=== PATIENT | female | born 1990 | race Caucasian/White ===

== ENCOUNTER 2017-03-04 11:47 | Emergency (ER) | payer MEDICAID, OTHER ==
[2017-03-04 15:33] LABS: ADD MAN DIFF? NO
[2017-03-04 15:36] LABS: WHITE BLOOD COUNT 10.1 10^3/ul (4.8-10.8)
[2017-03-04 15:36] LABS: BASOPHILS % 0.4 % (0.0-2.0); EOSINOPHILS # 0.1 10^3/ul (0.0-0.5); EOSINOPHILS % 0.6 % (0.0-7.0); HEMOGLOBIN 13.2 g/dl (12.0-16.0); LYMPHOCYTES # 2.2 10^3/ul (0.8-2.9); LYMPHOCYTES % 21.4 % (15.0-51.0); MEAN CORPUSCULAR HEMOGLOBIN 28.3 pg (29.0-33.0); MEAN CORPUSCULAR HGB CONC 33.8 g/dl (32.0-37.0); MEAN CORPUSCULAR VOLUME 83.7 fl (82.0-101.0); MEAN PLATELET VOLUME 10.9 fl (7.4-10.4); MONOCYTE # 0.8 10^3/ul (0.3-0.9); MONOCYTES % 7.5 % (0.0-11.0); NEUTROPHIL # 7.1 10^3/ul (1.6-7.5); NEUTROPHILS % 69.8 % (39.0-77.0); PLATELET COUNT 241 10^3/UL (140-415); RED BLOOD COUNT 4.66 10^6/ul (4.20-5.40); RED CELL DISTRIBUTION WIDTH 12.8 % (11.5-14.5)
[2017-03-04 15:47] LABS: ADD UMIC YES; UR ASCORBIC ACID 40 mg/dL (NEGATIVE); UR BACTERIA FEW /HPF (NONE SEEN); UR BILIRUBIN (Dip) NEGATIVE (NEGATIVE); UR BLOOD (Dip) NEGATIVE (NEGATIVE); UR CLARITY SLIGHTLY CLOUDY (CLEAR); UR COLOR YELLOW (YELLOW); UR GLUCOSE (Dip) NEGATIVE (NEGATIVE); UR KETONES (Dip) NEGATIVE (NEGATIVE); UR LEUKOCYTE ESTERASE (Dip) 3+ Leu/ul (NEGATIVE); UR MUCUS FEW /HPF (NONE SEEN); UR NITRITE (Dip) NEGATIVE (NEGATIVE); UR RBC 8 /HPF (0-5); UR SPECIFIC GRAVITY (Dip) 1.011 (1.003-1.030); UR SQUAMOUS EPITHELIAL CELL FEW /HPF (FEW); UR TOTAL PROTEIN (Dip) NEGATIVE (NEGATIVE); UR UROBILINOGEN (Dip) NEGATIVE (NEGATIVE); UR WBC 3 /HPF (0-5)
== END 2017-03-04 18:02 | disposition home or self-care (01) ==
LOC: FTE 11:47
DX: O20.9 Hemorrhage in early pregnancy, unspecified (principal); Z3A.14 14 weeks gestation of pregnancy
CPT/HCPCS: 36415; 76801; 81001; 84702; 85025; 86900; 86901; 99284-25

== ENCOUNTER 2017-07-21 13:15 | Outpatient (CLI) | payer MEDICAID | END 2017-07-21 17:40 | disposition home or self-care (01) | LOC: OBT 13:15 → L-D 13:15 → OBT 17:40 | DX: O62.9 Abnormality of forces of labor, unspecified (principal); Z3A.33 33 weeks gestation of pregnancy | CPT/HCPCS: 76817; 76818 ==

== ENCOUNTER 2017-07-21 17:57 | Emergency (ER) | payer MEDICAID | END 2017-07-21 18:52 | disposition home or self-care (01) | LOC: FTE 17:57 | DX: O99.89 Other specified diseases and conditions complicating pregnancy, childbirth and the puerperium (principal); R05 Cough; Z3A.33 33 weeks gestation of pregnancy | CPT/HCPCS: 99283; Z7502 ==

== ENCOUNTER 2017-09-06 20:05 | Inpatient (IN) | payer MEDICAID ==
[2017-09-06] MEDS ORDERED: METHYLERGONOVINE 0.2 MG INJ IM (23:00)
[2017-09-06] MEDS ORDERED: IBUPROFEN 600 MG TAB PO (23:00)
[2017-09-06] MEDS ORDERED: MISOPROSTOL 200 MCG TAB PR (23:00)
[2017-09-06] MEDS ORDERED: BUTORPHANOL 1 MG INJ IV (23:00)
[2017-09-06] MEDS ORDERED: BUTORPHANOL 2 MG INJ IV (23:00)
[2017-09-06] MEDS ORDERED: CARBOPROST 250 MCG INJ IM (23:00)
[2017-09-06] MEDS ORDERED: LIDOCAINE 1% (MPF) 30 ML INJ INJ (23:00)
[2017-09-06] MEDS ORDERED: OXYTOCIN 30 UNITS/LR 500 ML IV ×2 (23:00)
[2017-09-06] MEDS ORDERED: ACETAMINOPHEN/CODEINE #3 TAB PO (23:00)
[2017-09-07] MEDS: LACTATED RINGER'S 1,000 ML IV* ×5 (00:20→17:00)
[2017-09-07 01:15] LABS: ADD MAN DIFF? NO
[2017-09-07 01:18] LABS: BASOPHILS % 0.3 % (0.0-2.0); EOSINOPHILS # 0.1 10^3/ul (0.0-0.5); EOSINOPHILS % 0.7 % (0.0-7.0); HEMATOCRIT 41.5 % (37.0-47.0); HEMOGLOBIN 13.6 g/dl (12.0-16.0); LYMPHOCYTES # 2.1 10^3/ul (0.8-2.9); LYMPHOCYTES % 23.2 % (15.0-51.0); MEAN CORPUSCULAR HEMOGLOBIN 28.3 pg (29.0-33.0); MEAN CORPUSCULAR HGB CONC 32.8 g/dl (32.0-37.0); MEAN CORPUSCULAR VOLUME 86.5 fl (82.0-101.0); MONOCYTE # 0.9 10^3/ul (0.3-0.9); MONOCYTES % 9.5 % (0.0-11.0); NEUTROPHIL # 5.9 10^3/ul (1.6-7.5); NEUTROPHILS % 65.9 % (39.0-77.0); PLATELET COUNT 204 10^3/UL (140-415); RED CELL DISTRIBUTION WIDTH 14.3 % (11.5-14.5)
[2017-09-07] MEDS: MISOPROSTOL 25 MCG CAPSULE PO ×5 (01:28→19:25)
[2017-09-07 01:37] LABS: INR 0.84; PARTIAL THROMBOPLASTIN TIME 24.4 Sec (25.0-35.0); PROTIME 11.6 Sec (11.9-14.9); PT RATIO 0.9
[2017-09-07] MEDS ORDERED: OXYTOCIN 30 UNITS/LR 500 ML BAG IV (07:00)
[2017-09-07] MEDS: DINOPROSTONE 10 MG VAG SUPP VAG (09:08)
[2017-09-07 15:12] LABS: RAPID PLASMA REAGIN NONREACTIVE (NR)
[2017-09-07] MEDS ORDERED: FENTAnyl 2MCG/ML-ROPIV 0.2% 100 ML (18:04)
[2017-09-07] MEDS ORDERED: NALOXONE (0.4 MG/ML) INJ IV ×2 (18:30→19:30)
[2017-09-07] MEDS ORDERED: FENTAnyl 2MCG/ML-ROPIV 0.2% 100 ML BAG EPI (18:30)
[2017-09-07] MEDS ORDERED: CEFAZOLIN 1 GM INJ (18:59)
[2017-09-07] MEDS ORDERED: OXYTOCIN 10 UNIT INJ (18:59)
[2017-09-07] MEDS ORDERED: LIDOCAINE 2% (SDV) 5 ML INJ (18:59)
[2017-09-07] MEDS ORDERED: ONDANSETRON 4 MG INJ (19:00)
[2017-09-07] MEDS ORDERED: KETOROLAC 30 MG INJ (19:00)
[2017-09-07] MEDS ORDERED: METOCLOPRAMIDE 10 MG INJ (19:00)
[2017-09-07] MEDS ORDERED: morphine SULFATE/PF (10 MG/10 ML) INJ (19:00)
[2017-09-07] MEDS ORDERED: DEXAMETHASONE 4 MG/ML 1 ML INJ (19:01)
[2017-09-07 19:24] LABS: CBV COHb 0.9 %; CBV Oxygen Sat 53.9 mmHG; CBV Total Hemglobin 14.9 g/dl; Cord Blood Venous pO2 23.3 mmHG (15.0-45.0); Fraction OxyHgb Cord Venous 52.8 %; MODE ROOM AIR; MetHgb Cord Venous 1.2 %; Sample Type Blood venous; Site CORD
[2017-09-07] MEDS ORDERED: morphine 2 MG INJ IV ×2 (19:30)
[2017-09-07] MEDS ORDERED: ONDANSETRON 4 MG INJ IV (19:30)
[2017-09-07] MEDS ORDERED: NALBUPHINE HCL (10 MG/1 ML) INJ IV (19:30)
[2017-09-07] MEDS ORDERED: DIPHENHYDRAMINE 50 MG INJ IV (19:30)
[2017-09-07] MEDS ORDERED: ACETAMINOPHEN 500 MG TAB PO (19:30)
[2017-09-07] MEDS ORDERED: HYDROCODONE/APAP (5/325) TAB PO (19:30)
[2017-09-07] MEDS ORDERED: HYDROmorphONE 0.5 MG/0.5 ML SYG IV ×2 (19:30)
[2017-09-07] MEDS ORDERED: METHYLERGONOVINE 0.2 MG INJ IM (21:00)
[2017-09-07] MEDS ORDERED: METHYLERGONOVINE 0.2 MG TAB PO (21:00)
[2017-09-07] MEDS ORDERED: MISOPROSTOL 200 MCG TAB PR (21:00)
[2017-09-07] MEDS: OXYTOCIN 30 UNITS/LR 500 ML IV (21:00)
[2017-09-07] MEDS ORDERED: CARBOPROST 250 MCG INJ IM (21:00)
[2017-09-07] MEDS ORDERED: LANOLIN 7 GM TUBE TOP (21:00)
[2017-09-07] MEDS ORDERED: OXYTOCIN 30 UNITS/LR 500 ML IV (21:00)
[2017-09-07] MEDS ORDERED: LABETALOL HCL 20MG INJ (21:29)
[2017-09-07] MEDS: LABETALOL HCL 20MG INJ IV (21:32)
[2017-09-07 21:51] LABS: ADD MAN DIFF? NO
[2017-09-07 21:53] LABS: BASOPHILS % 0.2 % (0.0-2.0); HEMATOCRIT 46.2 % (37.0-47.0); HEMOGLOBIN 15.5 g/dl (12.0-16.0); LYMPHOCYTES # 1.4 10^3/ul (0.8-2.9); LYMPHOCYTES % 8.6 % (15.0-51.0); MEAN CORPUSCULAR HEMOGLOBIN 29.3 pg (29.0-33.0); MEAN CORPUSCULAR HGB CONC 33.5 g/dl (32.0-37.0); MEAN CORPUSCULAR VOLUME 87.3 fl (82.0-101.0); MEAN PLATELET VOLUME 11.4 fl (7.4-10.4); MONOCYTE # 0.6 10^3/ul (0.3-0.9); MONOCYTES % 3.5 % (0.0-11.0); NEUTROPHILS % 87.3 % (39.0-77.0); PLATELET COUNT 211 10^3/UL (140-415); RED BLOOD COUNT 5.29 10^6/ul (4.20-5.40); RED CELL DISTRIBUTION WIDTH 13.8 % (11.5-14.5)
[2017-09-07 21:53] LABS: WHITE BLOOD COUNT 16.1 10^3/ul (4.8-10.8)
[2017-09-07] MEDS: LACTATED RINGER'S 1,000 ML IV (22:11)
[2017-09-07 22:23] LABS: ALANINE AMINOTRANSFERASE 13 IU/L (13-69); ALBUMIN 3.5 g/dl (3.3-4.9); ALBUMIN/GLOBULIN RATIO 1.12; ALKALINE PHOSPHATASE 263 IU/L (42-121); ANION GAP 13 (8-16); ASPARTATE AMINO TRANSFERASE 23 IU/L (15-46); BILIRUBIN,INDIRECT 0.7 mg/dl (0-1.1); BILIRUBIN,TOTAL 0.7 mg/dl (0.2-1.3); BLOOD UREA NITROGEN 6 mg/dl (7-20); CALCIUM 9.4 mg/dl (8.4-10.2); CARBON DIOXIDE 22 mmol/L (21-31); CHLORIDE 105 mmol/L (97-110); CREATININE 0.67 mg/dl (0.44-1.00); GLUCOSE 98 mg/dl (70-220); POTASSIUM 4.3 mmol/L (3.5-5.1); SODIUM 136 mmol/L (135-144); TOTAL PROTEIN 6.6 g/dl (6.1-8.1); URIC ACID 4.8 mg/dl (3.1-7.9)
[2017-09-07 22:42] LABS: ADD UMIC NO; UR ASCORBIC ACID NEGATIVE (NEGATIVE); UR BILIRUBIN (Dip) NEGATIVE (NEGATIVE); UR BLOOD (Dip) NEGATIVE (NEGATIVE); UR CLARITY CLEAR (CLEAR); UR COLOR STRAW (YELLOW); UR GLUCOSE (Dip) NEGATIVE (NEGATIVE); UR KETONES (Dip) 1+ mg/dL (NEGATIVE); UR LEUKOCYTE ESTERASE (Dip) NEGATIVE Leu/ul (NEGATIVE); UR NITRITE (Dip) NEGATIVE (NEGATIVE); UR SPECIFIC GRAVITY (Dip) 1.008 (1.003-1.030); UR TOTAL PROTEIN (Dip) NEGATIVE (NEGATIVE); UR UROBILINOGEN (Dip) NEGATIVE (NEGATIVE)
[2017-09-07 22:53] LABS: INR 0.88; PT RATIO 0.9
[2017-09-07 23:02] LABS: PARTIAL THROMBOPLASTIN TIME 24.8 Sec (25.0-35.0)
[2017-09-08] MEDS: OXYTOCIN 30 UNITS/LR 500 ML IV (01:20)
[2017-09-08] MEDS: LACTATED RINGER'S 1,000 ML IV ×3 (04:53→20:53)
[2017-09-08] MEDS: KETOROLAC 30 MG INJ IV (07:47)
[2017-09-08 16:04] LABS: ADD MAN DIFF? NO
[2017-09-08 16:06] LABS: BASOPHILS % 0.3 % (0.0-2.0); EOSINOPHILS % 0.1 % (0.0-7.0); HEMATOCRIT 35.9 % (37.0-47.0); HEMOGLOBIN 11.9 g/dl (12.0-16.0); LYMPHOCYTES # 1.7 10^3/ul (0.8-2.9); MEAN CORPUSCULAR HEMOGLOBIN 29.2 pg (29.0-33.0); MEAN CORPUSCULAR HGB CONC 33.1 g/dl (32.0-37.0); MEAN PLATELET VOLUME 11.2 fl (7.4-10.4); MONOCYTE # 0.8 10^3/ul (0.3-0.9); MONOCYTES % 6.5 % (0.0-11.0); NEUTROPHIL # 9.4 10^3/ul (1.6-7.5); NEUTROPHILS % 78.8 % (39.0-77.0); PLATELET COUNT 171 10^3/UL (140-415); RED BLOOD COUNT 4.08 10^6/ul (4.20-5.40); RED CELL DISTRIBUTION WIDTH 14.1 % (11.5-14.5)
[2017-09-08 16:06] LABS: WHITE BLOOD COUNT 11.9 10^3/ul (4.8-10.8)
[2017-09-08] MEDS: HYDROCODONE/APAP (5/325) TAB PO (20:00)
[2017-09-09] MEDS: IBUPROFEN 600 MG TAB PO ×5 (01:05→23:31)
[2017-09-09] MEDS: LACTATED RINGER'S 1,000 ML IV ×3 (04:53→19:00)
[2017-09-09] MEDS: FOLIC ACID 1 MG TAB PO ×2 (08:43→09:00)
[2017-09-10] MEDS: LACTATED RINGER'S 1,000 ML IV (04:53)
[2017-09-10] MEDS: IBUPROFEN 600 MG TAB PO ×2 (05:42→12:29)
[2017-09-10] MEDS: MEASLES,MUMPS,RUBELLA VACCINE INJ SC* (07:31)
[2017-09-10] MEDS: FOLIC ACID 1 MG TAB PO (08:46)
[2017-09-10] MEDS: DIPHTH/TET/ACEL PERTUSS (ADULT) 0.5 ML VIAL IM* (09:14)
== END 2017-09-10 13:30 | disposition home or self-care (01) | DRG 766 ==
LOC: OBT 20:05 → PP1 09-08 14:56 → L-D 20:06 → OBT 22:55 → L-D 22:55
PROVIDERS: Obstetrics & Gynecology
PROC: 10D00Z1 Extraction of Products of Conception, Low, Open Approach (ICD-10-PCS; principal; 2017-09-07 18:00)
DX: O76 Abnormality in fetal heart rate and rhythm complicating labor and delivery (principal); Z3A.39 39 weeks gestation of pregnancy; Z37.0 Single live birth
CPT/HCPCS: 36415; 76815; 80053; 81003; 82803; 84560; 85025; 85384; 85610; 85730; 86592; 86850; 86900; 86901; 88307; 99464